=== PATIENT | male | born 1965 | race Caucasian/White ===

== ENCOUNTER 2017-02-11 19:20 | Emergency (ER) | payer SELFPAY ==
[~2017-02-11] VITALS: Ht 177.8 cm; Wt 100.0 kg
[~2017-02-11 19:20] MED LIST: ZOFR4TAB3 SL
[2017-02-11 19:56] VITALS: BP 128/76; PULSE 88; RESP 16; TEMP 98.9; O2SAT 98
--- NOTE | 2017-02-11 20:22 | PD ---
Physical Exam Date Seen by Provider: Feb 11, 2017 Time Seen by Provider: 20:20 Narrative 51 yo male here for evaluation of depression. Has been feeling down and feels if he has no help he will kill himself. Has had this before. Used to be seen at [facility], takes meds but not working. Had to leave early from work because he is too depressed. Has not taken meds in two months. Vitals sign stable. Patient awaiting bed placement. Data Data Last Documented VS Vital Signs Date Time Temp Pulse Resp B/P Pulse Ox O2 Delivery O2 Flow Rate FiO2 02/11/17 19:56 98.9 88 16 128/76 98 Room Air [facility] Medical Record Reviewed: Yes Supervised Visit with JUVENAL: No Jose Barba Feb 11, 2017 20:22
--- NOTE | 2017-02-11 22:46 | PD ---
HPI Chief Complaint: Psychiatric Symptoms Time Seen by Provider: 22:33 Travel History International Travel<30 days: No Contact w/Intl Traveler<30days: No Traveled to known affect area: No History of Present Illness HPI 51-year-old male with history of depression, bipolar disorder, here voluntarily for evaluation of depression and suicidal ideation. The patient reports feeling down and depressed and has had thoughts of harming himself/ending his life. He states [place] and thought about jumping in front of the train. He did not do anything to harm himself. He drinks alcohol occasionally. No illicit drug use. He denies any physical complaints. States he has not taken his psychiatric medications and 2 months. PFSH Past Medical History ADHD: Yes Bipolar Disorder: Yes Anxiety: Yes Depression: Yes Diminished Hearing: No Inguinal Hernia: Yes Past Surgical History Oral Surgery: Yes (REG) Social History Alcohol Use: No Tobacco Use: No Substance Use: No Allergies-Medications (Allergen,Severity, Reaction): Coded Allergies: No Known Allergies (Unverified , 02/13/16) Reported Meds & Prescriptions Reported Meds & Active Scripts Active Review of Systems Except as stated in HPI: all other systems reviewed are Neg Physical Exam Narrative GENERAL: Well-developed, well-nourished, comfortable, no acute distress. SKIN: Focused skin assessment warm/dry. HEAD: Atraumatic. Normocephalic. EYES: Pupils equal and round. No scleral icterus. No injection or drainage. ENT: Mucous membranes pink and moist. NECK: Trachea midline. No JVD. CARDIOVASCULAR: Regular rate and rhythm. RESPIRATORY: No accessory muscle use. Clear to auscultation. Breath sounds equal bilaterally. GASTROINTESTINAL: Abdomen soft, non-tender, nondistended. NEUROLOGICAL: Awake and alert. No obvious cranial nerve deficits. Motor grossly within normal limits. Normal speech. PSYCHIATRIC: Flat affect. Poor eye contact. Data Data Last Documented VS Vital Signs Date Time Temp Pulse Resp B/P Pulse Ox O2 Delivery O2 Flow Rate FiO2 02/11/17 19:56 98.9 88 16 128/76 98 Room Air Orders Complete Blood Count With Diff (02/11/17 22:42) Comprehensive Metabolic Panel (02/11/17 22:42) Psych Screen (02/11/17 22:42) Drug Screen, Random Urine (02/11/17 22:42) Alcohol (Ethanol) (02/11/17 22:42) Labs Laboratory Tests Test 02/11/17 22:44 White Blood Count 9.4 TH/MM3 Red Blood Count 5.19 MIL/MM3 Hemoglobin 15.7 GM/DL Hematocrit 46.6 % Mean Corpuscular Volume 89.9 FL Mean Corpuscular Hemoglobin 30.3 PG Mean Corpuscular Hemoglobin 33.7 % Concent Red Cell Distribution Width 12.7 % Platelet Count 203 TH/MM3 Mean Platelet Volume 8.9 FL Neutrophils (%) (Auto) 69.7 % Lymphocytes (%) (Auto) 19.7 % Monocytes (%) (Auto) 6.8 % Eosinophils (%) (Auto) 3.4 % Basophils (%) (Auto) 0.4 % Neutrophils # (Auto) 6.5 TH/MM3 Lymphocytes # (Auto) 1.8 TH/MM3 Monocytes # (Auto) 0.6 TH/MM3 Eosinophils # (Auto) 0.3 TH/MM3 Basophils # (Auto) 0.0 TH/MM3 CBC Comment DIFF FINAL Differential Comment Sodium Level 143 MEQ/L Potassium Level 3.9 MEQ/L Chloride Level 107 MEQ/L Carbon Dioxide Level 28.7 MEQ/L Anion Gap 7 MEQ/L Blood Urea Nitrogen 16 MG/DL Creatinine 1.01 MG/DL Estimat Glomerular Filtration 78 ML/MIN Rate Random Glucose 86 MG/DL Calcium Level 8.9 MG/DL Total Bilirubin 0.4 MG/DL Aspartate Amino Transf 23 U/L (AST/SGOT) Alanine Aminotransferase 23 U/L (ALT/SGPT) Alkaline Phosphatase 96 U/L Total Protein 7.8 GM/DL Albumin 3.9 GM/DL Urine Opiates Screen NEG Urine Barbiturates Screen NEG Urine Amphetamines Screen NEG Urine Benzodiazepines Screen NEG Urine Cocaine Screen NEG Urine Cannabinoids Screen NEG Ethyl Alcohol Level LESS THAN 3 MG/DL [facility] Medical Decision Making Medical Screen Exam Complete: Yes Emergency Medical Condition: Yes Differential Diagnosis Depression, suicidal ideation Narrative Course Vital signs are within normal limits. CBC is unremarkable. CMP is unremarkable Urine drug screen is negative for all drugs tested. Alcohol level is negative. The patient is medically cleared for psychiatric evaluation and disposition by them. Diagnosis Primary Impression: Depression Qualified Code: F32.9 - Depression, unspecified depression type Additional Impression: Suicidal ideation Niall Young MD Feb 11, 2017 22:46
[2017-02-11 22:58] LABS: AUTOMATED NEUTROPHIL # 6.5 TH/MM3 (1.8-7.7); BASOPHIL % 0.4 % (0.0-2.0); EOSINOPHIL # 0.3 TH/MM3 (0-0.4); EOSINOPHIL % 3.4 % (0.0-4.0); HEMATOCRIT 46.6 % (39.0-51.0); HEMO FLAGS DIFF FINAL; LYMPH % 19.7 % (9.0-44.0); LYMPHOCYTE # 1.8 TH/MM3 (1.0-4.8); MEAN CELL VOLUME 89.9 FL (80.0-100.0); MEAN CORPUSCULAR HEMOGLOBIN 30.3 PG (27.0-34.0); MEAN CORPUSCULAR HGB CONC 33.7 % (32.0-36.0); MONO % 6.8 % (0.0-8.0); NEUT % 69.7 % (16.0-70.0); PLATELET COUNT 203 TH/MM3 (150-450); RED BLOOD COUNT 5.19 MIL/MM3 (4.50-5.90); RED CELL DISTRIBUTION WIDTH 12.7 % (11.6-17.2); WHITE BLOOD COUNT 9.4 TH/MM3 (4.0-11.0)
[2017-02-11 23:07] LABS: AMPHETAMINE, URINE NEG (NEG); BARBITURATES, URINE NEG (NEG); COCAINE, URINE NEG (NEG)
[2017-02-11 23:21] LABS: ALT (GPT) 23 U/L (12-78); ANION GAP 7 MEQ/L (5-15); AST (GOT) 23 U/L (15-37); BICARBONATE 28.7 MEQ/L (21.0-32.0); BLOOD UREA NITROGEN 16 MG/DL (7-18); CHLORIDE 107 MEQ/L (98-107); GLOMERULAR FILTRATION RATE 78 ML/MIN (>89); POTASSIUM 3.9 MEQ/L (3.5-5.1); SODIUM (NA) 143 MEQ/L (136-145)
[2017-02-11 23:23] LABS: ALKALINE PHOSPHATASE 96 U/L (45-117); TOTAL BILIRUBIN ADULT 0.4 MG/DL (0.2-1.0)
[2017-02-12 07:39] VITALS: BP 107/62; PULSE 55; RESP 16; O2SAT 97
[2017-02-12 09:12] VITALS: BP 109/61; PULSE 79; RESP 16; O2SAT 98
[2017-02-12 11:41] VITALS: BP 131/79; PULSE 66; RESP 16; O2SAT 98
--- NOTE | 2017-02-12 16:30 | PD ---
History of Present Illness Chief Complaint: Psychiatric Symptoms Time Seen by Provider: 16:00 Travel History International Travel<30 Days: No Contact w/Intl Traveler<30days: No Known affected area: No Legal Status Legal Status: Voluntary History of Present Illness: Patient wanting to leave at this time. He has been living at the [facility] but stopped taking his psychotropic medicines when he left there. He is currently living with a friend. He was offered prescriptions for his medicines by this physician but he states he has a sufficient amount. He is treated at [facility] and states he can return there. He denies any suicidal or homicidal ideation, plan or intent. He has no psychotic symptoms and his cognition is intact. PFSH Past Medical History ADHD: Yes Bipolar Disorder: Yes Anxiety: Yes Depression: Yes Diminished Hearing: No Inguinal Hernia: Yes Past Surgical History Oral Surgery: Yes (WISDOM) Psychiatric History Psychiatric History Hx Psychiatric Treatment: hx of depression, "nervous breakdown" History of Inpatient Treatment: Yes Guns or firearms in home: No Social History Hx Alcohol Use: No Hx Tobacco Use: No Hx Substance Use: No Hx of Substance Use Treatment: No Allergies-Medications (Allergen,Severity, Reaction): Coded Allergies: No Known Allergies (Unverified , 02/13/16) Reported Meds & Prescriptions Reported Meds & Active Scripts Active Review of Systems Except as stated in HPI: all other systems reviewed are Neg Exam Alert: Yes Power: Person, Place, Date, Situation Mood: Calm Affect: Appropriate Speech: Clear, Logical Eye Contact: Normal Memory Intact: Immediate, Recent, Remote Insight/Judgement Adequate MDM Medical Decision Making Medical Record Reviewed: Yes Assessment/Plan Patient does not meet criteria for Lee act and he is here voluntarily. He also wishes to leave and he is competent to make that decision. When offered assistance with medications, the patient declined stating he had some. He is denying being suicidal and reports no suicidal or homicidal ideation, plan or intent. He has no psychotic symptoms and his cognition is intact. He does not meet inpatient psychiatric criteria and he was referred back to [facility] for outpatient follow up. Orders Complete Blood Count With Diff (02/11/17 22:42) Comprehensive Metabolic Panel (02/11/17 22:42) Psych Screen (02/11/17 22:42) Drug Screen, Random Urine (02/11/17 22:42) Alcohol (Ethanol) (02/11/17 22:42) Diet Regular Basic (02/12/17 Lunch) Results Vital Signs Date Time Temp Pulse Resp B/P Pulse Ox O2 Delivery O2 Flow Rate FiO2 02/12/17 11:41 66 16 131/79 98 Room Air 02/12/17 09:12 79 16 109/61 98 Room Air 02/12/17 07:39 55 16 107/62 97 Room Air 02/11/17 19:56 98.9 88 16 128/76 98 Room Air Laboratory Tests Test 02/11/17 22:44 White Blood Count 9.4 Red Blood Count 5.19 Hemoglobin 15.7 Hematocrit 46.6 Mean Corpuscular Volume 89.9 Mean Corpuscular Hemoglobin 30.3 Mean Corpuscular Hemoglobin 33.7 Concent Red Cell Distribution Width 12.7 Platelet Count 203 Mean Platelet Volume 8.9 Neutrophils (%) (Auto) 69.7 Lymphocytes (%) (Auto) 19.7 Monocytes (%) (Auto) 6.8 Eosinophils (%) (Auto) 3.4 Basophils (%) (Auto) 0.4 Neutrophils # (Auto) 6.5 Lymphocytes # (Auto) 1.8 Monocytes # (Auto) 0.6 Eosinophils # (Auto) 0.3 Basophils # (Auto) 0.0 CBC Comment DIFF FINAL Differential Comment Sodium Level 143 Potassium Level 3.9 Chloride Level 107 Carbon Dioxide Level 28.7 Anion Gap 7 Blood Urea Nitrogen 16 Creatinine 1.01 Estimat Glomerular Filtration 78 Rate Random Glucose 86 Calcium Level 8.9 Total Bilirubin 0.4 Aspartate Amino Transf 23 (AST/SGOT) Alanine Aminotransferase 23 (ALT/SGPT) Alkaline Phosphatase 96 Total Protein 7.8 Albumin 3.9 Urine Opiates Screen NEG Urine Barbiturates Screen NEG Urine Amphetamines Screen NEG Urine Benzodiazepines Screen NEG Urine Cocaine Screen NEG Urine Cannabinoids Screen NEG Ethyl Alcohol Level LESS THAN 3 Diagnosis Primary Impression: Adjustment disorder, unspecified Departure Forms: Work Release, Enter return to work date: Feb 13, 2017 Special Instructions: pt was seen here may return to work as date shown Tests/Procedures Patient Instructions: General Instructions George Devries MD Feb 12, 2017 16:30
== END 2017-02-12 21:44 | disposition home or self-care (01) ==
LOC: NEPD 19:20
DX: F43.20 Adjustment disorder, unspecified (principal); F33.8 Other recurrent depressive disorders; F31.9 Bipolar disorder, unspecified
CPT/HCPCS: 80053; 80307; 85025; 99283

== ENCOUNTER 2017-02-19 20:42 | Emergency (ER) | payer SELFPAY ==
[~2017-02-19] VITALS: Ht 177.8 cm; Wt 100.0 kg
[2017-02-19 22:11] VITALS: BP 141/95; PULSE 77; RESP 16; TEMP 98.1; O2SAT 99
[2017-02-19] MEDS ORDERED: KETO2CRE TOPICAL (22:21)
--- NOTE | 2017-02-19 22:21 | PD ---
HPI Chief Complaint: Skin Problem Time Seen by Provider: 22:03 Travel History International Travel<30 days: No Contact w/Intl Traveler<30days: No Traveled to known affect area: No History of Present Illness HPI Patient is a 51-year-old male presenting to emergency for evaluation of a rash to his groin, back, face. He states it's been there for at least 8 weeks. He states that it is itchy. He denies any new lotions, soaps, detergents. He denies any history of eczema. He reports being sent home from work today because his boss is concerned that it is communicable. He has no other complaints at this time. [facility] Past Medical History ADHD: Yes Bipolar Disorder: Yes Anxiety: Yes Depression: Yes Diminished Hearing: No Inguinal Hernia: Yes Tetanus Vaccination: > 5 Years Past Surgical History Oral Surgery: Yes (WISDOM) Social History Alcohol Use: Yes (OCCASIONALY ) Tobacco Use: No Substance Use: No Allergies-Medications (Allergen,Severity, Reaction): Coded Allergies: No Known Allergies (Unverified , 02/19/17) Reported Meds & Prescriptions Reported Meds & Active Scripts Active Ketoconazole Topical 2% Cream 1 Applic TOPICAL DAILY Review of Systems Except as stated in HPI: all other systems reviewed are Neg Skin: Positive Rash, Positive Itching, Positive Dryness Physical Exam Narrative GENERAL: Well-nourished, well-developed patient. SKIN: Focused skin assessment warm/dry. Groin and bilateral inner upper thighs with a hyperpigmented, well demarcated rash with partially cleared center, scaly. Area of hyper pigmented maculopapular rash to the left mid back and cheek on the right HEAD: Normocephalic. EYES: No scleral icterus. No injection or drainage. NECK: Supple, trachea midline. No JVD or lymphadenopathy. CARDIOVASCULAR: Regular rate and rhythm without murmurs, gallops, or rubs. RESPIRATORY: Breath sounds equal bilaterally. No accessory muscle use. GASTROINTESTINAL: Abdomen soft, non-tender, nondistended. MUSCULOSKELETAL: No cyanosis, or edema. BACK: Nontender without obvious deformity. No CVA tenderness. Data Data Last Documented VS Vital Signs Date Time Temp Pulse Resp B/P Pulse Ox O2 Delivery O2 Flow Rate FiO2 02/19/17 22:11 98.1 77 16 141/95 99 Room Air MDM Medical Decision Making Medical Screen Exam Complete: Yes Emergency Medical Condition: Yes Differential Diagnosis Tinea versus dermatitis versus eczema versus psoriasis versus scabies versus other Narrative Course Patient is a 51-year-old male presented to the evaluation of a rash which is been present for approximately 8 weeks. Physical examination appears most consistent with tinea. Patient has fairly extensive involvement in the groin, he also has a patch on his left back and a small area on the right cheek. Patient will be treated with topical ketoconazole cream. He was advised to apply daily as directed for 2 weeks. He was encouraged to follow-up with a primary care provider for ongoing evaluation and management. If he does not respond to topical cream he may need oral therapy. Patient verbalizes understanding of instructions. Patient is stable for discharge. Diagnosis Primary Impression: Tinea corporis Additional Impressions: Tinea faciale Tinea cruris Referrals: [facility] 1 week Patient Instructions: General Instructions, Tinea Corporis (ED) Departure Forms: Tests/Procedures, Work Release Enter return to work date: Feb 20, 2017 Special Instructions: No restrictions Additional Instructions: Apply cream daily for 2 weeks Follow-up with a primary doctor Return to emergency department for any new or worsening symptoms Med/Other Pt SpecificInfo: Prescription(s) given Scripts Ketoconazole Topical 2% Cream1 Applic TOPICAL DAILY #60 GM Ref 1 Prov:Ashley Alvarado 02/19/17 Disposition: 01 DISCHARGE HOME Condition: Stable Ashley Alvarado Feb 19, 2017 22:21
== END 2017-02-19 22:45 | disposition home or self-care (01) ==
LOC: NEPK 20:42
DX: B35.4 Tinea corporis (principal); B35.6 Tinea cruris; B35.8 Other dermatophytoses; Z86.59 Personal history of other mental and behavioral disorders
CPT/HCPCS: 99283